=== PATIENT | female | born 1975 | race Caucasian/White ===

== ENCOUNTER 2024-08-16 17:58 | Emergency (ER) | payer MEDICARE, MEDICAID ==
[~2024-08-16] VITALS: Ht 170.2 cm; Wt 95.0 kg
[2024-08-16 18:09] VITALS: O2SAT 97
[2024-08-16] MEDS ORDERED: METHYLPREDNISOLONE 40MG/ML INJ IV ONE (22:15)
[2024-08-16] MEDS ORDERED: ALBU90AE INH (22:24)
[2024-08-16] MEDS ORDERED: PRED5TAB48 MT (22:24)
[2024-08-16 22:34] VITALS: BP 137/80; PULSE 88; RESP 18; TEMP 36.8; O2SAT 98
[2024-08-16] MEDS: METHYLPREDNISOLONE SOD SUCC 125MG/2ML (ACT-O-VIAL) IM NR (22:34)
== END 2024-08-16 22:34 | disposition home or self-care (01) ==
LOC: ER 17:58
DX: J06.9 Acute upper respiratory infection, unspecified (principal); B97.89 Other viral agents as the cause of diseases classified elsewhere; J44.9 Chronic obstructive pulmonary disease, unspecified
CPT/HCPCS: 99283; 71045; 96372; J2919; J2920

== ENCOUNTER 2024-11-20 19:04 | Emergency (ER) | payer MEDICARE, MEDICAID ==
[~2024-11-20] VITALS: Ht 177.8 cm; Wt 78.0 kg
[~2024-11-20 19:04] MED LIST: ALBU90AE INH; PRED5TAB48 MT
[2024-11-20 19:12] VITALS: O2SAT 96
[2024-11-20] MEDS ORDERED: AZIT250T12 MT (21:13)
[2024-11-20 21:52] VITALS: BP 132/77; PULSE 75; RESP 20; TEMP 37.1; O2SAT 95
== END 2024-11-20 21:55 | disposition home or self-care (01) ==
LOC: ER 19:04
DX: J06.9 Acute upper respiratory infection, unspecified (principal); J44.9 Chronic obstructive pulmonary disease, unspecified; F32.A Depression, unspecified; Z79.899 Other long term (current) drug therapy
CPT/HCPCS: 71045; 99283

== ENCOUNTER 2024-12-26 12:17 | Emergency (ER) | payer MEDICARE, MEDICAID ==
[~2024-12-26] VITALS: Ht 172.7 cm; Wt 100.0 kg
[~2024-12-26 12:17] MED LIST changes: +AZIT250T12 MT
[2024-12-26 12:24] VITALS: O2SAT 100
[2024-12-26] MEDS ORDERED: AZIT250T12 MT (13:46)
[2024-12-26] MEDS ORDERED: PROP1DRO2 MT (13:46)
[2024-12-26 14:30] VITALS: BP 116/50; PULSE 66; RESP 16; TEMP 37.2; O2SAT 97
== END 2024-12-26 14:34 | disposition home or self-care (01) ==
LOC: ER 12:17
DX: H10.9 Unspecified conjunctivitis (principal); J44.9 Chronic obstructive pulmonary disease, unspecified; Z79.899 Other long term (current) drug therapy
CPT/HCPCS: 99283

== ENCOUNTER 2025-03-20 16:55 | Emergency (ER) | payer MEDICARE, MEDICAID ==
[~2025-03-20] VITALS: Ht 165.1 cm; Wt 78.0 kg
[~2025-03-20 16:55] MED LIST changes: +PROP1DRO2 MT
[2025-03-20 16:58] VITALS: O2SAT 97
[2025-03-20 18:58] LABS: BASOPHILS % 0.8 % (0.0-2.0); EOSINOPHILS % 0.0 % (0.0-5.0); HEMATOCRIT. 35.0 % (36.0-48.0); HEMOGLOBIN. 11.2 g/dL (12.0-16.0); LYMPHOCYTES % 12.8 % (20.0-50.0); MEAN PLATELET VOLUME 8.0 fl (7.4-10.4); MONOCYTES % 6.6 % (2.0-8.0); NEUTROPHILS % 79.8 % (40.0-76.0); PLATELET 322 x1000/uL (130-400); RED BLOOD CELL COUNT 4.30 mill/uL (4.2-5.4); RED CELL DISTRIBUTION WIDTH 14.9 % (11.6-14.6)
[2025-03-20 19:11] LABS: HCG SCREEN NEGATIVE
[2025-03-20 19:14] LABS: CREATININE 1.1 mg/dL (0.6-1.0)
[2025-03-20 19:15] LABS: UREA NITROGEN BLOOD 23 mg/dL (9-23)
[2025-03-20 19:16] LABS: ASPARTATE AMINOTRANSFERASE 68 IU/L (<34)
[2025-03-20 19:17] LABS: BILIRUBIN DIRECT 0.4 mg/dL (<=3.0); BILIRUBIN TOTAL 1.2 mg/dL (0.1-1.0); PROTEIN TOTAL 7.8 g/dL (6.0-8.3)
[2025-03-20] MEDS: POTASSIUM CHLORIDE 20MEQ/PACKET PO ONE (21:00)
[2025-03-20] MEDS: SODIUM CHLORIDE 0.9% 1,000 ML IV ONE (21:00)
[2025-03-20 22:08] LABS: CLARITY URINE TURBID (CLEAR); COLOR URINE DARK YELLOW (YELLOW); GLUCOSE URINE NEGATIVE (NEGATIVE); KETONES URINE 1+ (NEGATIVE); LEUKOCYTE ESTERASE URINE NEGATIVE (NEGATIVE); NITRITE URINE NEGATIVE (NEGATIVE); OCCULT BLOOD URINE 1+ (NEGATIVE); PH URINE 5.5 (4.5-8.0); PROTEIN URINE 1+ (NEGATIVE); SPECIFIC GRAVITY URINE 1.035 (1.005-1.030); UROBILINOGEN URINE 1.0 E.U./dL (0.2-1.0)
[2025-03-20 22:30] LABS: *AMPHETAMINES SCREEN URINE PRESUMPTIVE POSITIVE (NEGATIVE); *BARBITURATES SCREEN URINE NEGATIVE (NEGATIVE); *BENZODIAZEPINES SCREEN URINE NEGATIVE (NEGATIVE); *COCAINE SCREEN URINE NEGATIVE (NEGATIVE); CANNABINOID URINE SCREEN NEGATIVE (NEGATIVE); ECSTASY MDMA SCREEN URINE CONF.TEST INDICATED (NEGATIVE); METHADONE URINE SCREEN NEGATIVE (NEGATIVE); OPIATES URINE SCREEN NEGATIVE (NEGATIVE); PHENCYCLIDINE URINE SCREEN NEGATIVE (NEGATIVE)
[2025-03-20 22:37] LABS: AMORPHOUS SEDIMENT URINE 1+ /lpf; BACTERIA URINE 4+; SQUAMOUS EPITHELIAL CELL URINE 1+ /lpf (RARE/1+); WBC URINE 0-2 /hpf (0-2)
[2025-03-20] MEDS: OLANZAPINE 10 MG/VIAL IM ONE (23:09)
[2025-03-20] MEDS: LORAZEPAM 2MG/ML UD SYRINGE IM NR (23:09)
[2025-03-21 06:09] LABS: PLATELET 284 x1000/uL (130-400); RED BLOOD CELL COUNT 4.21 mill/uL (4.2-5.4); RED CELL DISTRIBUTION WIDTH 14.9 % (11.6-14.6)
[2025-03-21 06:53] LABS: CREATININE 0.7 mg/dL (0.6-1.0); UREA NITROGEN BLOOD 19 mg/dL (9-23)
[2025-03-21 14:00] VITALS: BP 100/53; PULSE 67; RESP 18; TEMP 37; O2SAT 98
== END 2025-03-21 14:26 ==
LOC: ER 16:55
DX: F23 Brief psychotic disorder (principal); J44.9 Chronic obstructive pulmonary disease, unspecified; F32.A Depression, unspecified; F15.90 Other stimulant use, unspecified, uncomplicated; Z79.899 Other long term (current) drug therapy; Z20.822 Contact with and (suspected) exposure to COVID-19
CPT/HCPCS: 80076; 80305; 80048; 81003; 80320; 82140; 84703; 85027; 85025; 36415; 70450; 93005; 96360; 96361; 96372; 99285; 87426; J3490; J2060; J7030; G0480